=== PATIENT | female | born 1960 | race Caucasian/White ===

== ENCOUNTER 2018-05-15 14:21 | Emergency (ER) | payer OTHER ==
[~2018-05-15] VITALS: Ht 152.4 cm; Wt 58.2 kg
[2018-05-15 14:33] VITALS: TEMP 99.2
[2018-05-15 15:20] LABS: PROTHROMBIN TIME 10.8 SECONDS (9.7-12.8)
[2018-05-15 15:22] LABS: PARTIAL THROMBOPLASTIN TIME 29.1 SECONDS (26.0-37.0)
[2018-05-15 15:27] LABS: ALANINE AMINOTRANSFERASE 32 U/L (9-52); ALBUMIN 4.2 gm/dL (3.5-5.0); ALKALINE PHOSPHATASE 73 U/L (50-136); ANION GAP 11 mmol/L (7-16); AST,SGOT 27 U/L (15-37); BILIRUBIN,TOTAL 0.2 mg/dL (0.0-1.0); BLOOD UREA NITROGEN 15 mg/dL (7-17); CALCIUM 9.1 mg/dL (8.4-10.2); CARBON DIOXIDE 23 mmol/L (22-30); CHLORIDE 104 mmol/L (98-107); CREATININE, serum 0.69 mg/dL (0.52-1.25); GLUCOSE 90 mg/dL (74-106); SODIUM 138 mmol/L (137-145); TOTAL PROTEIN 8.1 gm/dL (6.4-8.2)
[2018-05-15 15:39] LABS: TROPONIN-I < 0.012 ng/mL (0.000-0.034)
[2018-05-15] MEDS ORDERED: TYLENOL 325MG325 MG PO (16:18)
[2018-05-15] MEDS ORDERED: ZOLOFT 100MG100 MG PO (16:18)
[2018-05-15] MEDS ORDERED: ZITHROMAX 250M250 MG PO (16:19)
[2018-05-15] MEDS ORDERED: PREDNISONE20 MG PO (17:03)
[2018-05-15 17:20] VITALS: BP 123/79; PULSE 75
== END 2018-05-15 17:21 | disposition home or self-care (01) ==
LOC: COL.ER 14:21
PROVIDERS: Emergency Medicine
DX: R07.89 Other chest pain (principal); G43.909 Migraine, unspecified, not intractable, without status migrainosus; Z87.891 Personal history of nicotine dependence
CPT/HCPCS: J7030; J7512; Q9967

== ENCOUNTER → 2018-05-15 | Outpatient (CLI) | payer OTHER ==
[~2018-05-15] MED LIST: PREDNISONE20 MG PO; TYLENOL 325MG325 MG PO; ZITHROMAX 250M250 MG PO; ZOLOFT 100MG100 MG PO
[2018-05-15 13:27] LABS: BASO % 0.6 % (0.0-2.0); EOS # 0.1 (0.0-0.7); EOS % 1.1 % (0-4.0); GRAN # 3.7 (1.4-6.5); GRAN % 69.5 % (42.2-75.2); HEMATOCRIT 38.9 % (37.0-47.0); HEMOGLOBIN 12.4 g/dl (12.5-16.0); LYMPH # 1.2 (1.2-3.4); LYMPH % 22.2 % (20.0-51.0); MEAN CELL VOLUME 83 fl (80.0-100.0); MEAN CORPUSCULAR HEMOGLOBIN 26 pg (27.0-31.0); MEAN CORPUSCULAR HGB CONC 32 g/dl (33.0-37.0); MEAN PLATELET VOLUME 9.8 fl (7.4-10.4); MONO # 0.3 (0.1-0.6); MONO % 6.2 % (1.7-9.3); PLATELET COUNT 235 K/mm3 (130-400); RED BLOOD COUNT 4.71 M/mm3 (4.10-5.30); REDCELL DISTRIBUTION WIDTH-CV 14.2 % (11.5-14.5)
== END ==
LOC: COL.LAB 12:52
PROVIDERS: Psychiatry & Neurology Neurology
DX: R07.9 Chest pain, unspecified (principal)